=== PATIENT | male | born 1960 | race Caucasian/White ===

== ENCOUNTER → 2023-12-30 10:15 | Outpatient (REF) | payer OTHER, SELFPAY | LOC: HWRAD 10:15 | PROVIDERS: ATTENDING PHYSICIAN Family Medicine | DX: R91.8 Other nonspecific abnormal finding of lung field (principal) | CPT/HCPCS: 71250 ==

== ENCOUNTER → 2024-08-26 11:05 | Outpatient (REF) | payer OTHER, SELFPAY | LOC: RAD 11:05 | PROVIDERS: ATTENDING PHYSICIAN Physician Assistant; FAMILY PHYSICIAN Family Medicine | DX: M25.512 Pain in left shoulder (principal); T14.90XA Injury, unspecified, initial encounter | CPT/HCPCS: 73030 ==

== ENCOUNTER → 2024-09-23 18:36 | Outpatient (REF) | payer OTHER, SELFPAY | LOC: PAVMRI 18:36 | PROVIDERS: ATTENDING PHYSICIAN Physician Assistant; FAMILY PHYSICIAN Family Medicine; PRIMARYCARE PHYSICIAN Family Medicine | DX: M25.512 Pain in left shoulder (principal); M25.612 Stiffness of left shoulder, not elsewhere classified; T14.90XA Injury, unspecified, initial encounter | CPT/HCPCS: 73221 ==

== ENCOUNTER 2024-10-30 06:25 | Day surgery (SDC) | payer OTHER, SELFPAY ==
[2024-10-19 09:24] LABS: Hematocrit 48.9 % (39.0-52.0); Hemoglobin 17.3 g/dL (13.0-18.0); Mean Corp Hgb Conc. 35.4 g/dL (33.0-37.0); Mean Corpuscular Hgb 29.7 pg (27.0-31.0); Mean Platelet Volume 9.9 fL (7.4-10.4); Platelet Count 247 10^3/uL (130-400); Red Blood Cell Count 5.82 10^6/uL (4.70-6.10); Red Cell Dist. Width 12.7 % (11.5-14.5); White Blood Cell Count 12.3 10^3/uL (4.8-10.8)
[2024-10-19 13:01] VITALS: BMI 28.9
[2024-10-30] VITALS (12 sets, daily range): BP systolic 140–169; BP diastolic 91–109; BMI 28.9
[2024-10-30] MEDS: NORMOSOL-R/PLASMALYTE-A 1000 IV (08:14)
[2024-10-30] MEDS: CELEBREX 200 MG PO (08:15)
[2024-10-30] MEDS: TYLENOL 1000 MG PO (08:15)
== END 2024-10-30 13:26 | disposition home or self-care (01) ==
LOC: SDS 06:25
PROVIDERS: ATTENDING PHYSICIAN Specialist; FAMILY PHYSICIAN Family Medicine
DX: S46.012A Strain of muscle(s) and tendon(s) of the rotator cuff of left shoulder, initial encounter (principal); S46.212A Strain of muscle, fascia and tendon of other parts of biceps, left arm, initial encounter; X58.XXXA Exposure to other specified factors, initial encounter; M65.912 Unspecified synovitis and tenosynovitis, left shoulder
CPT/HCPCS: 29827; 36415; 85027; 93005; C1713

== ENCOUNTER 2024-12-14 07:09 | Outpatient (RCR) | payer OTHER, SELFPAY | END 2024-12-14 23:59 | disposition home or self-care (01) | LOC: RPT 07:09 | PROVIDERS: ATTENDING PHYSICIAN Physician Assistant Surgical; FAMILY PHYSICIAN Family Medicine | DX: M25.512 Pain in left shoulder (principal); M62.81 Muscle weakness (generalized); Z73.6 Limitation of activities due to disability; Z98.890 Other specified postprocedural states | CPT/HCPCS: 97110; 97162 ==

== ENCOUNTER 2025-01-13 09:01 | Outpatient (RCR) | payer OTHER, SELFPAY | END 2025-01-13 23:59 | disposition home or self-care (01) | LOC: RPT 09:01 | PROVIDERS: ATTENDING PHYSICIAN Physician Assistant Surgical; FAMILY PHYSICIAN Family Medicine | DX: M25.512 Pain in left shoulder (principal); M62.81 Muscle weakness (generalized); Z73.6 Limitation of activities due to disability; Z98.890 Other specified postprocedural states | CPT/HCPCS: 97110; 97140 ==

== ENCOUNTER 2025-02-12 14:04 | Observation (INO) | payer OTHER, SELFPAY ==
[2025-02-12] VITALS (10 sets, daily range): BP systolic 142–181; BP diastolic 87–111; PULSE 66–67; BMI 30.4
--- NOTE | 2025-02-12 09:55 | ED.GENMED ---
History of Present Illness
<Noe Jackson PA-C - Last Filed: 02/12/25 13:37>
General
Chief Complaint: Dizziness
Source: patient
Time Seen by Provider: 02/12/25 09:35
History of Present Illness
History of Present Illness:
64-year-old male with past medical history of hypertension and hyperlipidemia presenting to the ER for evaluation of dizziness that began this morning upon awakening to use the restroom at 3:30 AM stating he felt as if he was not able to ambulate
straight, was able to get back into bed and fall back asleep but upon awakening again around 730 patient states the symptoms continued. He was able to get to the shower but states that while in the shower he became diaphoretic but never had any
chest pain, shortness of breath, palpitations or any other concerns. Patient did note the dizziness made him feel little bit nauseous but he has not had any vomiting. He does note that he has had vertigo in the past but not feel like vertigo that
he has experienced before. 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 No recent illnesses. Social
history noncontributory.
Past History
<Noe Jackson PA-C - Last Filed: 02/12/25 13:37>
Past History
ED Past Medical History: HTN and Hypercholesterolemia
ED Past Surgical History: Orthopedic
Social History
Tobacco: Non-smoker
Alcohol: Occasional
Drug: None
Personal:
Living: with family
Review of Systems
<Noe Jackson PA-C - Last Filed: 02/12/25 13:37>
Review of Systems
All Other Systems: ROS reviewed and negative except as documented in HPI and ROS
Phy Exam
<Noe Jackson PA-C - Last Filed: 02/12/25 13:37>
Physical Exam
Physical Exam:
GENERAL: Alert , in no apparent distress
HEAD: Normocephalic atraumatic
EYE: conjunctiva clear, pupils 3 mm bilateral, EOMI, no nystagmus
NECK: Supple
ENT: o/p clr, mmm.
CARDIAC: Regular rate and rhythm
LUNGS: Clear breath sounds bilaterally, no acute respiratory distress, no wheezes/rales/rhonchi
NEUROLOGICAL: Alert and oriented, moves all extremities, sensory intact throughout and equal
SKIN: Warm and dry, skin intact.
MUSCULOSKELETAL: well perfused.
PSYCH: Normal and appropriate interaction.
Scores
<Noe Jackson PA-C - Last Filed: 02/12/25 13:37>
NIH Stroke Score
Level of Consciousness: 0 - Alert
LOC Questions: 0-Answers both correctly
LOC Commands: 0-Performs both correctly
Best Horizontal Gaze: 0-Normal
Visual Her: 0=Normal, no visual loss
Facial Palsy: 0=Normal, symmetrical
Motor - Right Arm: 0=No drift 10 seconds
Motor - Left Arm: 0=No drift 10 seconds
Motor - Right Le-No drift 5 seconds
Motor - Left Le-No drift 5 seconds
Limb Ataxia: 0-Absent
Sensation: 0-Normal
Best Language: 0-No aphasia
Dysarthria: 0-Normal
Extinction and Inattention: 0-No abnormality
Total Score:: 0
Heart Failure Risk
Heart Failure Risk Score: Not Applicable
Heart Score for Chest Pain Patients
STEMI patient?: Not applicable
Withdrawal Assessment of Alcohol
Withdrawal Assessment Completed?: Not applicable
<Emory Velez MD - Last Filed: 02/12/25 10:13>
NIH Stroke Score
Total Score:: 0
Course
<ESAU Ralph Last Filed: 02/12/25 13:37>
Orders/Labs/Results
Orders:
Orders
02/12/25 09:38
ECG [Electrocardiogram (*1)] Urgent
Reason for Study: Vertigo / Dizzy
EKG- Treatment ONCE
02/12/25 09:48
Orthostatic VS- Treatment ONCE
0.9% Sodium Chloride 1000 ml [Nss] 1,000 ml IV BOLUS
02/12/25 09:50
Complete Blood Count/With Diff Urgent
Comprehensive Metabolic Panel Urgent
Magnesium Urgent
TSH Urgent
Troponin I Urgent
02/12/25 09:57
CT Head W/o Iv Contrast Urgent
Comment:
Reason For Exam: HTN, dizzy
02/12/25 12:39
Admit/Transfer Patient As Directed
Co-Sign Provider:
Level of Care: Observation services
Assign to:: Telemetry
Physician / Group: Kami
Diagnosis: Hypertensive urgency/TIA, rule out CVA
Reason for Telemetry: CVA/TIA
Date to Stop Telemetry: 02/15/25
Time to Stop Telemetry: 11:00
Reason for Hospitalization: Above
Expected length of stay greater than two midnights?: No
ELOS- Estimated Length of Stay in days: 1
I certify the patient meets the requirements for IP care: No
PRN Pain Medication Management As Directed
May give lesser potent ordered pain med per pt: Yes
preference::
Protocol:: Medication orders for pain may be administered in a
manner that supports deferring to patient preference
when the pt is:
- Requesting an ordered lesser potent pain medication.
Least to most potent pain medications are defined
as: acetaminophen < NSAID < tramadol < opioids
(morphine, oxycodone, hydromorphone).
- Requesting a lesser dose of the same medication IF
ORDERED.
- Requesting a less intrusive route of administration
if both routes are prescribed by the provider (PO <
IV).
02/12/25 12:41
Code Status As Directed
Resuscitation Status: Full Code
02/12/25 12:50
Aspirin 325 mg PO NOW STA
02/15/25 11:00
DC Protocol for Telemetry ONCE
Abnormal Lab Results
02/12/25
09:50
Chloride 109 H mmol/L
(98-107)
BUN 23 H mg/dl
(9-20)
Glucose 138 H mg/dl
(70-99)
Total Bilirubin 1.5 H mg/dl
(0.2-1.3)
02/12/25 09:50
02/12/25 09:50
Vital Signs
Initial and Last Documented VS:
Initial Vital Signs
Temp Pulse Resp BP Pulse Ox
97.5 F 66 16 155/107 99
02/12/25 09:27 02/12/25 09:27 02/12/25 09:27 02/12/25 09:27 02/12/25 09:27
Last Documented Vital Signs
Temp Pulse Resp BP Pulse Ox
97.5 F 70 16 148/91 97
02/12/25 09:27 02/12/25 12:00 02/12/25 09:27 02/12/25 12:00 02/12/25 12:00
<Emory Velez MD - Last Filed: 02/12/25 10:13>
Orders/Labs/Results
Orders:
Orders
02/12/25 09:38
ECG [Electrocardiogram (*1)] Urgent
Reason for Study: Vertigo / Dizzy
EKG- Treatment ONCE
02/12/25 09:48
Orthostatic VS- Treatment ONCE
0.9% Sodium Chloride 1000 ml [Nss] 1,000 ml IV BOLUS
02/12/25 09:50
Complete Blood Count/With Diff Urgent
Comprehensive Metabolic Panel Urgent
Magnesium Urgent
TSH Urgent
Troponin I Urgent
02/12/25 09:57
CT Head W/o Iv Contrast Urgent
Comment:
Reason For Exam: HTN, dizzy
02/12/25 12:39
Admit/Transfer Patient As Directed
Co-Sign Provider:
Level of Care: Observation services
Assign to:: Telemetry
Physician / Group: Kami
Diagnosis: Hypertensive urgency/TIA, rule out CVA
Reason for Telemetry: CVA/TIA
Date to Stop Telemetry: 02/15/25
Time to Stop Telemetry: 11:00
Reason for Hospitalization: Above
Expected length of stay greater than two midnights?: No
ELOS- Estimated Length of Stay in days: 1
I certify the patient meets the requirements for IP care: No
PRN Pain Medication Management As Directed
May give lesser potent ordered pain med per pt: Yes
preference::
Protocol:: Medication orders for pain may be administered in a
manner that supports deferring to patient preference
when the pt is:
- Requesting an ordered lesser potent pain medication.
Least to most potent pain medications are defined
as: acetaminophen < NSAID < tramadol < opioids
(morphine, oxycodone, hydromorphone).
- Requesting a lesser dose of the same medication IF
ORDERED.
- Requesting a less intrusive route of administration
if both routes are prescribed by the provider (PO <
IV).
02/12/25 12:41
Code Status As Directed
Resuscitation Status: Full Code
02/12/25 12:50
Aspirin 325 mg PO NOW STA
02/15/25 11:00
DC Protocol for Telemetry ONCE
Abnormal Lab Results
02/12/25
09:50
Chloride 109 H mmol/L
(98-107)
BUN 23 H mg/dl
(9-20)
Glucose 138 H mg/dl
(70-99)
Total Bilirubin 1.5 H mg/dl
(0.2-1.3)
02/12/25 09:50
02/12/25 09:50
Vital Signs
Initial and Last Documented VS:
Initial Vital Signs
Temp Pulse Resp BP Pulse Ox
97.5 F 66 16 155/107 99
02/12/25 09:27 02/12/25 09:27 02/12/25 09:27 02/12/25 09:27 02/12/25 09:27
Last Documented Vital Signs
Temp Pulse Resp BP Pulse Ox
97.5 F 70 16 148/91 97
02/12/25 09:27 02/12/25 12:00 02/12/25 09:27 02/12/25 12:00 02/12/25 12:00
<Noe Jackson PA-C - Last Filed: 02/12/25 13:37>
MDM/Problems Addressed
Differential Diagnosis Includes:
BPPV, labyrinthitis, vestibular neuritis, posterior/cerebellar CVA, atypical ACS presentation, electrolyte derangement, orthostasis, hypertensive urgency
MDM/Problems Addressed:
64-year-old male presenting to the ER for evaluation of of vertiginous-like symptoms that began earlier this morning, continued prompting patient to come to the ER today. Noted to have significantly elevated diastolic blood pressure. No focal
findings on exam here however given patient's risks for CVA including hypertension, hyperlipidemia, family history I do think patient needs further workup for this. Will obtain labs, CT of the head, discussed with neurology. Disposition pending
with anticipation of admission
Chronic conditions affecting care: HTN
Acute Exacerbation and/or Progression of Chronic Illness: HTN
<Noe Jackson PA-C - Last Filed: 02/12/25 13:37>
*Radiology
Radiology exam reviewed: radiology read reviewed
*Pulse Oximetry
Patient hypoxic: no
*EKG
Heart Rate: 64
Rate: normal
Rhythm: sinus
Ischemia: no ischemia
*Assistant Professor Nurse Education Interpretation
Rate: normal
Rhythm: sinus
*Critical Care Note
Total Time (30-74mins, 75-104mins- exclusive of procedures): Not Applicable
<Noe Jackson PA-C - Last Filed: 02/12/25 13:37>
Patient Management
Discussion with other providers: Hospitalist and Dry Pan Operator
Escalation/DeEscalation of care consider admission/obs:
Notified neurology who will see the patient in consult. Hospitalist team is aware and accepts for continued evaluation and treatment
ED Attending Note
<Noe Jackson PA-C - Last Filed: 02/12/25 13:37>
-
Portions of this chart may have been created with voice recognition software.� Occasional wrong word or��sound alike� substitutions may have occurred due to the inherent limitations of voice recognition software.
<Emory Velez MD - Last Filed: 02/12/25 10:13>
ED Attending Note
Patient seen and examined by attending physician: Yes
I performed the substantive portion of visit, reviewed & personally made and approve the management plan that is documented in note by myself or SARAVANAN.: Yes
ED Attending Note:
54-year-old male acute onset of disequilibrium with a funny feeling in his head starting about 330 this morning. Denies true headache. No vomiting with some nausea. Has a history of vertigo but this feels different. No true spinning or rotating
with this issue. Feels mildly improved at this time.
GENERAL: Alert and oriented in no apparent distress
EYE: Orbits normal. Extraocular muscles intact. No nystagmus
NECK: Supple, no carotid bruit
CARDIAC: Regular rate and rhythm without any obvious murmurs.
LUNGS: Clear breath sounds,normal
NEUROLOGICAL: Alert and oriented , cranial nerves II through XII intact. Speech normal. [id number]-[id number] normal. Hjbv-es-[id number] normal. Light touch intact
SKIN: Warm and dry
PSYCH: Normal and appropriate interaction.
Impression is disequilibrium sudden onset with hypertension history. Somewhat concerning for central etiology given he has a history of vertigo and this feels different. Will do a plain CT first to rule out bleed and asked for neurology's
involvement. NIH 0 at this time
Discharge Plan
Departure
Patient Disposition: Admit
Date of Disposition: 02/12/25
Time of Disposition: 10:49
Presentation/result/management discussed w/ accepting MD/DO: Hospitalist
Discharge Problem:
Hypertensive urgency, Dizziness
Prescriptions:
No Action
ascorbic acid (vitamin C) [Vitamin C] 1,000 mg Tablet
1 g PO DAILY
sumatriptan succinate [Imitrex] 50 mg Tablet
50 mg PO DAILYPRN PRN (Reason: migraines)
rosuvastatin 20 mg Tablet
20 mg PO DAILY
ustekinumab [Stelara] 45 mg/0.5 mL Syringe
45 mg SC Q12W
Referrals:
Alfa Ch MD [Family Provider] -
Interventions
Interventions:
*Risk Screen - Suicide Last Done: 02/12/25 09:27
*General Assessment Last Done: 02/12/25 09:27
*ED COVID-19 Vaccine History Last Done: 02/12/25 09:27
ED- Neurological Assessment Last Done: 02/12/25 09:50
ED- Cardiac Assessment Last Done: 02/12/25 09:36
ED Swallowing Screen Last Done: 02/12/25 11:00
Discharge Date and Time
Print Language: [place]
[2025-02-12] MEDS: NSS 1000 IV (09:59)
[2025-02-12 10:09] LABS: ALT (SGPT) 26 U/L (0-50); AST (SGOT) 25 U/L (17-59); Albumin 4.7 g/dl (3.5-5.0); Alkaline Phosphatase 52 U/L (38-126); Blood Urea Nitrogen 23 mg/dl (9-20); Calcium 9.6 mg/dl (8.4-10.2); Carbon Dioxide 22 mmol/L (22-30); Chloride 109 mmol/L (98-107); Estimated Creatinine Clearance 107 ml/min; Glucose 138 mg/dl (70-99); Magnesium 1.8 mg/dl (1.6-2.3); Potassium 3.9 mmol/L (3.5-5.1); Sodium 141 mmol/L (135-145); Total Bilirubin 1.5 mg/dl (0.2-1.3); Total Protein 7.1 g/dl (6.3-8.2); eGFR > 60.00
[2025-02-12 10:11] LABS: % Basophils 0.5 % (0-2); % Immature Granulocytes 0.2 % (0-0.5); % Lymphocytes 39.8 % (20.5-51.1); % Monocytes 5.6 % (1.7-9.3); % Neutrophils 51.9 % (42.2-75.2); Absolute Eosinophils 0.1 10^3/uL (0-0.7); Absolute Lymphocytes 2.2 10^3/uL (1.2-3.4); Absolute Monocytes 0.3 10^3/uL (0.1-0.6); Absolute Neutrophils 2.9 10^3/uL (1.4-6.5); Hematocrit 47.4 % (39.0-52.0); Hemoglobin 16.9 g/dL (13.0-18.0); Mean Corp Hgb Conc. 35.7 g/dL (33.0-37.0); Mean Corpuscular Hgb 29.3 pg (27.0-31.0); Mean Corpuscular Volume 82.1 fL (80.0-94.0); Mean Platelet Volume 9.7 fL (7.4-10.4); Nucleated Red Blood Cells % 0 % (-); Platelet Count 242 10^3/uL (130-400); Red Blood Cell Count 5.77 10^6/uL (4.70-6.10); Red Cell Dist. Width 13.6 % (11.5-14.5); White Blood Cell Count 5.5 10^3/uL (4.8-10.8)
[2025-02-12 10:20] LABS: Troponin I < 0.012 ng/ml
--- NOTE | 2025-02-12 12:47 | HPS.HSE ---
Family Physician
-
Family Physician: Alfa Ch
Chief Complaint
-
Lightheadedness
History of Present Illness
Patient is a 64 years old male with history of untreated hypertension, dyslipidemia, migraines, plaque psoriasis who presents to the emergency room with persistent lightheadedness. Patient has prior episodes of vertigo, although today he describes
different sensation starting from last night when he woke up to go to the restroom feeling global paresthesia around his head. He later found himself to be lightheaded and ataxic, although he denies any vertigo. He denies any other focal symptoms
including diplopia or loss of vision, denies any speech abnormalities or upper or lower extremity weakness.
Upon presentation to the emergency room patient was found to be hypertensive with persistently elevated diastolic blood pressure over 100.
He was observed with no improved BP and complete resolution of symptoms.
Medical History
Past Medical History
Past Medical History: Reports HTN; Denies CAD, Cancer, CHF or NIDDM
Additional Past Medical History:
Plaque psoriasis.
Migraine
Past Surgical History: Reports None
Social History
Tobacco: Non-smoker
Alcohol: Occasional
Drug: None
Living: With Family
Employment: Retired
Family History
Family History: Not pertinent
Allergies / Home Medications
Allergies reflects when Allergies were last updated in [employer].
Home Medications with original date entered in [employer]
Allergy/Medication List:
Allergies
Allergy/AdvReac Type Severity Reaction Status Date / Time
No Known Allergies Allergy Verified 02/12/25 09:30
Home Medications
ascorbic acid (vitamin C) 1,000 mg tablet (Vitamin C) 1 g PO DAILY 10/23/24
rosuvastatin 20 mg tablet 20 mg PO DAILY 10/23/24
sumatriptan succinate 50 mg tablet (Imitrex) 50 mg PO DAILYPRN PRN migraines 10/23/24
ustekinumab 45 mg/0.5 mL subcutaneous syringe (Stelara) 45 mg SC Q12W 10/23/24
Review of Systems
-
A 12 point ROS was completed and negative except as noted: Yes
Physical Exam
Vital Signs
Vital Signs
Temp Pulse Resp BP Pulse Ox
97.5 F 70 16 148/91 97
02/12/25 09:27 02/12/25 12:00 02/12/25 09:27 02/12/25 12:00 02/12/25 12:00
Physical Exam
General: Well Developed, Well Nourished and No Apparent Distress
HEENT: NormoCephalic, Moist mucous membranes and Atraumatic
Respiratory: Clear
Cardiac: S1/S2 and Regular Rhythm; No Murmur or Rub
GI: Soft, Non Tender, Non Distended and Normal Bowel Sounds; No Organomegaly
Rectal: Deferred by Provider
Musculoskeletal: No Clubbing, No Cyanosis and No Edema
Skin: No Rash
Neuro: Nonfocal/grossly intact
Laboratory Results
-
02/12/25 09:50
02/12/25 09:50
Laboratory Results
Total Bilirubin 1.5 mg/dl (0.2-1.3) H 02/12/25 09:50
AST 25 U/L (17-59) 02/12/25 09:50
ALT 26 U/L (0-50) 02/12/25 09:50
Alkaline Phosphatase 52 U/L (38-126) 02/12/25 09:50
Troponin I < 0.012 ng/ml 02/12/25 09:50
Impression/Plan
-
IMPRESSION:
Presentation with lightheadedness.
Hypertensive urgency/untreated hypertension.
Other conditions:
Hypertension
Dyslipidemia
Migraine headaches.
Plaque psoriasis on Stelara last injection on 02/07/2025
PLAN:
Self-limited episode of lightheadedness.
In the settings of accelerated blood pressure concern for hypertensive urgency
Other differential could be vestibular neuritis, less likely also with reasonable concern for VBA insufficiency, posterior CVA
Exam nonfocal on presentation.
Symptoms resolved.
BP noted trending down without intervention.
CT head with no acute abnormality
Admit for observation.
Neurology consultation.
MRI of the brain
Monitor BP trend closely, avoid aggressive intervention pending imaging. Further workup depends on MRI findings and BP trend.
Lipid profile
Hemoglobin A1c
Aspirin
[2025-02-12] MEDS: ASPIRIN 325 MG PO (13:19)
--- NOTE | 2025-02-12 16:47 | CON.NEURO ---
Consultation
Order
Date of Consultation: 02/12/25
Requesting Provider: Jasvir Mcclure MD
Reason for Consult: dizziness
Neurology Consultation Note.
HPI: this is a 64-year-old right-handed man who presented to [facility] on February 12, 2025 with imbalance.
According to the patient around 3:30 AM, while half-asleep in bed, he experienced a sensation 'like a hand in my brain' lasting for 2 seconds, like a big air bubble.' Upon getting up to urinate, he felt dizzy and unstable. He describes the feeling
as different from his previous experiences with vertigo, noting it wasn't a spinning sensation but rather a feeling of instability. He took a hot shower, felt sweaty, and returned to bed. His daughter, who lives with him, became concerned when their
home blood pressure monitor showed a reading of 173/113, prompting the decision to seek medical attention.
no reports of dysarthria, change in vision,
Mr. Cuello has history of migraine without aura and takes sumatriptan for.
ER VS: 155/103, 66, afebrile
EKG: NSR, QTc Int : 460 ms
PDMP: No recently prescribed medication
Labs: glucose�138, normal WBCs, creatinine, WBCs, TSH.
CT head wo contrast�unremarkable
PMH: migraine without aura, HTN, DLP, mild MESSI, psoriatic arthritis
PSH: bilateral rotator cuff repair, hernia repair
SH: lives with daughter, retired, non-smoker, no history excessive alcohol
FH: Father�EtOH addiction
All:NKDA
ROS: Constitutional: Negative. Negative for chills, fever and unexpected weight change.
HENT: Negative for ear pain, hearing loss, tinnitus and trouble swallowing.
Eyes: Negative. Negative for photophobia, pain and visual disturbance.
Respiratory: Negative for cough, choking and shortness of breath.
Cardiovascular: Negative for chest pain, palpitations and leg swelling.
Gastrointestinal: Negative for abdominal pain and vomiting.
Endocrine: Negative. Negative for cold intolerance.
Genitourinary: Negative for dysuria, flank pain and urgency.
Musculoskeletal: Negative for back pain, gait problem, neck pain and neck stiffness.
Skin: Negative for rash.
Allergic/Immunologic: Negative. Negative for immunocompromised state.
Neurological: positive for transient dizziness, intermittent headache
Psychiatric/Behavioral: Negative for behavioral problems, confusion and hallucinations.
General: Well developed. In no acute distress.
Cardio: Regular rate and rhythm without murmur. Extremities are without cyanosis or edema.
Neuro:
Mental Status: Alert, oriented to person, place, and date. Normal attention and recall. Good fund of knowledge. Follows complex requests across the midline. Comprehension, naming, and repetition intact. Immediate and delayed recall 3/3.
Cranial Nerves: Pupils are equally round and reactive to light. EOMs full. Visual monsivais full to confrontation. No ptosis. No nystagmus. V1-V3 intact to light touch and pinprick bilaterally, symmetric. Face symmetric. Normal hearing AU. The
palate elevated well. SCMs and traps 5/5. Tongue midline. No dysarthria.
Motor: Normal bulk and tone. No pronator or arm drift. Strength 5/5 throughout. No clonus.
Reflexes: 2+ throughout the upper extremities and knees. Plantar responses flexor bilaterally.
Sensory: Normal vibration and JPS.
Coordination: No dysmetria or tremor.
Gait: deferred
Assessment and Plan:
I. Likely hypertensive emergency
II. Migraine without aura
III. Chronic immunosuppression
-Continue Telemetry monitoring
- Fall precaution
-Cautious lowering of BP by approximately 15 % during the first 24 hours is SBP >220 mmHg or diastolic blood pressure >120 mmHg
-Brain MRI without dash
-Hold triptans until brain MRI is completed
-PT.
-DVT prophylaxis.
I personally reviewed all radiology and labs along with past medical records pertinent to current medical problems. Total time spent in patient care is 60 minutes.
Thank you for allowing us to participate in the care of this patient. We will continue to follow. Please do not hesitate to contact us with any questions or concerns.
Subjective/Objective
Subjective Data
Date of Service: February 12, 2025
Objective Data
Vital Signs
Temp Pulse Resp BP Pulse Ox
36.6 C 71 19 152/96 97
02/12/25 16:10 02/12/25 16:10 02/12/25 16:10 02/12/25 16:10 02/12/25 16:10
Lab Results
02/12/25 09:50
02/12/25 09:50
Sodium 141 mmol/L (135-145) 02/12/25 09:50
Potassium 3.9 mmol/L (3.5-5.1) 02/12/25 09:50
BUN 23 mg/dl (9-20) H 02/12/25 09:50
Glucose 138 mg/dl (70-99) H 02/12/25 09:50
Calcium 9.6 mg/dl (8.4-10.2) 02/12/25 09:50
Patient Allergies
No Known Allergies Allergy (Verified 02/12/25 09:30)
Medications
-
Active Medications
Generic Name Dose Route Start Last Admin
Trade Name Freq PRN Reason Stop Dose Admin
Acetaminophen 650 mg 02/12/25 16:04
Acetaminophen 650 Mg Rectal Suppository RECTAL 03/12/25 16:03
Q4HPRN PRN
VU, mild pain, or temp >100.4F
Acetaminophen 650 mg 02/12/25 16:04
Acetaminophen 325 Mg Tablet PO 03/12/25 16:03
Q4HPRN PRN
VU, mild pain, or temp >100.4F
Ascorbic Acid 500 mg 02/13/25 08:00
Ascorbic Acid 500 Mg Tablet PO 03/13/25 07:59
DAILY ANUJ
Enoxaparin Sodium 40 mg 02/12/25 18:00
Enoxaparin Sodium 40 Mg/0.4 Ml Syringe SC 03/12/25 17:59
QPM ANUJ
Rosuvastatin Calcium 20 mg 02/13/25 08:00
Rosuvastatin (Crestor) 20 Mg Tablet PO 03/13/25 07:59
DAILY ANUJ
Home Medications
�Medication �Instructions �Recorded
ascorbic acid (vitamin C) 1,000 mg 1 g PO DAILY 10/23/24
tablet (Vitamin C)
rosuvastatin 20 mg tablet 20 mg PO DAILY 10/23/24
sumatriptan succinate 50 mg tablet 50 mg PO DAILYPRN PRN migraines 10/23/24
(Imitrex)
ustekinumab 45 mg/0.5 mL 45 mg SC Q12W 10/23/24
subcutaneous syringe (Stelara)
Vital Signs and Labs
-
Vital Signs and Labs:
Vital Signs
Temp Pulse Resp BP Pulse Ox
36.6 C 71 19 152/96 97
02/12/25 16:10 02/12/25 16:10 02/12/25 16:10 02/12/25 16:10 02/12/25 16:10
Lab Results
02/12/25 09:50
02/12/25 09:50
Sodium 141 mmol/L (135-145) 02/12/25 09:50
Potassium 3.9 mmol/L (3.5-5.1) 02/12/25 09:50
BUN 23 mg/dl (9-20) H 02/12/25 09:50
Glucose 138 mg/dl (70-99) H 02/12/25 09:50
Calcium 9.6 mg/dl (8.4-10.2) 02/12/25 09:50
Medications
-
Medications:
Generic Name Dose Route Start Last Admin
Trade Name Freq PRN Reason Stop Dose Admin
Acetaminophen 650 mg 02/12/25 16:04
Acetaminophen 650 Mg Rectal Suppository RECTAL 03/12/25 16:03
Q4HPRN PRN
VU, mild pain, or temp >100.4F
Acetaminophen 650 mg 02/12/25 16:04
Acetaminophen 325 Mg Tablet PO 03/12/25 16:03
Q4HPRN PRN
VU, mild pain, or temp >100.4F
Ascorbic Acid 500 mg 02/13/25 08:00
Ascorbic Acid 500 Mg Tablet PO 03/13/25 07:59
DAILY ANUJ
Enoxaparin Sodium 40 mg 02/12/25 18:00
Enoxaparin Sodium 40 Mg/0.4 Ml Syringe SC 03/12/25 17:59
QPM ANUJ
Rosuvastatin Calcium 20 mg 02/13/25 08:00
Rosuvastatin (Crestor) 20 Mg Tablet PO 03/13/25 07:59
DAILY ANUJ
Home Medications
-
Home Medications
ascorbic acid (vitamin C) 1,000 mg tablet (Vitamin C) 1 g PO DAILY 10/23/24
rosuvastatin 20 mg tablet 20 mg PO DAILY 10/23/24
sumatriptan succinate 50 mg tablet (Imitrex) 50 mg PO DAILYPRN PRN migraines 10/23/24
ustekinumab 45 mg/0.5 mL subcutaneous syringe (Stelara) 45 mg SC Q12W 10/23/24
[2025-02-12] MEDS: LOVENOX 40 MG SC (18:57)
[2025-02-12] MEDS: TYLENOL 650 MG PO (19:07)
[2025-02-13 00:41] VITALS: BP 163/95
[2025-02-13 03:30] VITALS: BP 138/86
[2025-02-13] MEDS: TYLENOL 650 MG PO ×2 (03:53→08:15)
[2025-02-13 06:00] VITALS: BMI 29.4
[2025-02-13 07:00] VITALS: BP 131/81
[2025-02-13] MEDS: VITAMIN C 500 MG PO (08:10)
[2025-02-13] MEDS: CRESTOR 20 MG PO (08:10)
[2025-02-13 08:51] LABS: HDL Cholesterol 37 mg/dl; LDL Cholesterol, Calculated 87 mg/dl; Total Cholesterol 167 mg/dl (50-199); Triglyceride 219 mg/dl (10-149); Very Low Density Lipoprotein 43 mg/dl (0-30)
--- NOTE | 2025-02-13 10:30 | W.PN.HOSP.TC ---
Today's Communication/Plan
-
add 5mg Lisinopril
await MRI read; if negative, can dc home
Assessment / Plan
Assessment / Plan
IMPRESSION:
Presentation with lightheadedness.
Hypertensive urgency/untreated hypertension.
Other conditions:
Essential Hypertension
Dyslipidemia
Migraine headaches.
Plaque psoriasis on Stelara last injection on 02/07/2025
PLAN:
Self-limited episode of lightheadedness.
In the settings of accelerated blood pressure concern for hypertensive urgency
Other differential could be vestibular neuritis, less likely also with reasonable concern for VBA insufficiency, posterior CVA
Exam nonfocal on presentation.
Symptoms resolved.
BP noted trending down without intervention. But patient notes periods of elevated BP at home and in office visits. Was previously on BP meds but stopped 5 years ago - cannot recall the name.
CT head with no acute abnormality
MRI pending
Neuro consult appreciated
LDL 87
continue aspirin for now.
Anticipated Discharge: Within 24 hours
Subjective/Interval History
-
Date of Service: February 13, 2025
reports headache improving
no dizziness, no unsteadiness on his feet
BP 131/81
Objective Data
-
Vital Signs:
Vital Signs
Temp Pulse Resp BP Pulse Ox
98.2 F 68 16 131/81 95
02/13/25 07:00 02/13/25 07:00 02/13/25 07:00 02/13/25 07:00 02/13/25 07:00
Physical Exam
-
General: No Apparent Distress
HEENT: Normocephalic and Atraumatic
Respiratory: Negative Wheezes
Cardiac: Regular Rhythm and S1/S2
GI: Soft and Nontender
Genito-urinary: No Costovertebral Tender
Neuro: AO x 3
Hematologic / Lymphatic: No Lymphadenopathy
Psych: Calm
Data Reviewed
-
Total Time Spent with Patient (in minutes): 41
Labs: Labs Reviewed by me
[2025-02-13 11:00] VITALS: BP 143/101
--- NOTE | 2025-02-13 11:18 | W.PN.NEURO.1 ---
Today's Communication / Plan
-
.
Subjective/Objective
Subjective Data
Date of Service: February 13, 2025
Neurology follow-up note.
Mr. Cuello reports no complaints. He is eager to go home. No recurrent episodes of unusual sensation. Blood pressure has improved.
PMH: migraine without aura, HTN, DLP, mild MESSI, psoriatic arthritis
PSH: bilateral rotator cuff repair, hernia repair
SH: lives with daughter, retired, non-smoker, no history excessive alcohol
FH: Father�EtOH addiction
All:NKDA
ROS: Constitutional: Negative. Negative for chills, fever and unexpected weight change.
HENT: Negative for ear pain, hearing loss, tinnitus and trouble swallowing.
Eyes: Negative. Negative for photophobia, pain and visual disturbance.
Respiratory: Negative for cough, choking and shortness of breath.
Cardiovascular: Negative for chest pain, palpitations and leg swelling.
Gastrointestinal: Negative for abdominal pain and vomiting.
Endocrine: Negative. Negative for cold intolerance.
Genitourinary: Negative for dysuria, flank pain and urgency.
Musculoskeletal: Negative for back pain, gait problem, neck pain and neck stiffness.
Skin: Negative for rash.
Allergic/Immunologic: Negative. Negative for immunocompromised state.
Neurological: positive for transient dizziness, intermittent headache
Psychiatric/Behavioral: Negative for behavioral problems, confusion and hallucinations.
General: Well developed. In no acute distress.
Cardio: Regular rate and rhythm without murmur. Extremities are without cyanosis or edema.
Neuro:
Mental Status: Alert, oriented to person, place, and date. Normal attention and recall. Good fund of knowledge. Follows complex requests across the midline. Comprehension, naming, and repetition intact.
Cranial Nerves: Pupils are equally round and reactive to light. EOMs full. Visual monsivais full to confrontation. No ptosis. No nystagmus. V1-V3 intact to light touch and pinprick bilaterally, symmetric. Face symmetric. Normal hearing AU. The
palate elevated well. SCMs and traps 5/5. Tongue midline. No dysarthria.
Motor: Normal bulk and tone. No pronator or arm drift. Strength 5/5 throughout. No clonus.
Coordination: No dysmetria or tremor.
Gait: deferred
Assessment and Plan:
I. Likely hypertensive emergency
II. Migraine without aura
III. Chronic immunosuppression
-Continue Telemetry monitoring
-Brain MRI without dash(can be done as OP)
-Hold triptans until brain MRI is completed
-PT.
-DVT prophylaxis.
- Outpatient neurology follow-up
I personally reviewed all radiology and labs along with past medical records pertinent to current medical problems. Total time spent in patient care is 35 minutes.
Thank you for allowing us to participate in the care of this patient. Please do not hesitate to contact us with any questions or concerns.
Objective Data
Vital Signs
Temp Pulse Resp BP Pulse Ox
36.8 C 68 16 131/81 95
02/13/25 07:00 02/13/25 07:00 02/13/25 07:00 02/13/25 07:00 02/13/25 07:00
Lab Results
02/12/25 09:50
02/12/25 09:50
Sodium 141 mmol/L (135-145) 02/12/25 09:50
Potassium 3.9 mmol/L (3.5-5.1) 02/12/25 09:50
BUN 23 mg/dl (9-20) H 02/12/25 09:50
Glucose 138 mg/dl (70-99) H 02/12/25 09:50
Calcium 9.6 mg/dl (8.4-10.2) 02/12/25 09:50
LDL Cholesterol, Calc 87 mg/dl 02/13/25 06:41
Patient Allergies
No Known Allergies Allergy (Verified 02/12/25 09:30)
Vital Signs and Labs
-
Vital Signs and Labs:
Vital Signs
Temp Pulse Resp BP Pulse Ox
36.8 C 68 16 131/81 95
02/13/25 07:00 02/13/25 07:00 02/13/25 07:00 02/13/25 07:00 02/13/25 07:00
Lab Results
02/12/25 09:50
02/12/25 09:50
Sodium 141 mmol/L (135-145) 02/12/25 09:50
Potassium 3.9 mmol/L (3.5-5.1) 02/12/25 09:50
BUN 23 mg/dl (9-20) H 02/12/25 09:50
Glucose 138 mg/dl (70-99) H 02/12/25 09:50
Calcium 9.6 mg/dl (8.4-10.2) 02/12/25 09:50
LDL Cholesterol, Calc 87 mg/dl 02/13/25 06:41
Medications
-
Medications:
Generic Name Dose Route Start Last Admin
Trade Name Freq PRN Reason Stop Dose Admin
Acetaminophen 650 mg 02/12/25 16:04
Acetaminophen 650 Mg Rectal Suppository RECTAL 03/12/25 16:03
Q4HPRN PRN
VU, mild pain, or temp >100.4F
Acetaminophen 650 mg 02/12/25 16:04 02/13/25 08:15
Acetaminophen 325 Mg Tablet PO 03/12/25 16:03 650 mg
Q4HPRN PRN Administration
VU, mild pain, or temp >100.4F
Ascorbic Acid 500 mg 02/13/25 08:00 02/13/25 08:10
Ascorbic Acid 500 Mg Tablet PO 03/13/25 07:59 500 mg
DAILY ANUJ Administration
Enoxaparin Sodium 40 mg 02/12/25 18:00 02/12/25 18:57
Enoxaparin Sodium 40 Mg/0.4 Ml Syringe SC 03/12/25 17:59 40 mg
QPM ANUJ Administration
Lisinopril 5 mg 02/13/25 11:00
Lisinopril 5 Mg Tablet PO 03/13/25 10:59
DAILY ANUJ
Rosuvastatin Calcium 20 mg 02/13/25 08:00 02/13/25 08:10
Rosuvastatin (Crestor) 20 Mg Tablet PO 03/13/25 07:59 20 mg
DAILY ANUJ Administration
Home Medications
-
Home Medications
ascorbic acid (vitamin C) 1,000 mg tablet (Vitamin C) 1 g PO DAILY 10/23/24
rosuvastatin 20 mg tablet 20 mg PO DAILY 10/23/24
sumatriptan succinate 50 mg tablet (Imitrex) 50 mg PO DAILYPRN PRN migraines 10/23/24
ustekinumab 45 mg/0.5 mL subcutaneous syringe (Stelara) 45 mg SC Q12W 10/23/24
--- NOTE | 2025-02-13 11:58 | CM ---
Addendum entered by Samantha Presley RN 02/13/25 15:29:
PT/OT; no skilled need.
The patient stated he felt ready to go home today and family would provide transport home.
Plan home today.
Addendum entered by Samantha Presley RN 02/13/25 12:18:
Observation Letter completed.
Original Note:
Patient with Dx Likely hypertensive emergency, Migraine. Room air. Brain MRI today. Per nursing; ambulatory in room. PT/OT pending.
Met with patient who resides with his daughter Bernie and grand-daughter in a 1 story house with 5 MUKESH.
The patient was independent in ADLs and ambulation.
He was active waling 6 miles every other day.
The patient has no DME, no prior VN or SNF.
He states he had a left rotator cuff repair and is currently doing Outpatient PT therapy.
PCP - [facility]
Pharmacy - [facility]
Anticipate likely no d/c needs.
Plan probable home with resumption outpatient PT.
[2025-02-13] MEDS: ZESTRIL 5 MG PO (12:17)
[2025-02-13 12:45] VITALS: BP 168/106; PULSE 72; O2SAT 99
--- NOTE | 2025-02-13 12:47 | W.DS.TRANS ---
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
-
Discharge Instructions:
Discharge Diagnosis/Procedures headache dizziness
Diet Low Sodium,Low Cholesterol
Activity As tolerated
Instructions:
Stand-Alone Forms:
Changes to Home Medications: No
Discharge Medications:
DC Medications w/original date entered in [facility]
ascorbic acid (vitamin C) 1,000 mg tablet (Vitamin C) 1 g PO DAILY 10/23/24
rosuvastatin 20 mg tablet 20 mg PO DAILY 10/23/24
sumatriptan succinate 50 mg tablet (Imitrex) 50 mg PO DAILYPRN PRN migraines 10/23/24
ustekinumab 45 mg/0.5 mL subcutaneous syringe (Stelara) 45 mg SC Q12W 10/23/24
lisinopril 5 mg tablet 5 mg PO DAILY #30 tabs 02/13/25
Home Medication Changes
Pending Results: No
Total time spent discharging patient (in min): 41
[2025-02-13 12:50] VITALS: BP 168/106; PULSE 72
--- NOTE | 2025-02-13 13:24 | PTOTSP ---
Patient appears at his functional baseline. He is I with all mobility and performs it safe and steady. patient also concurs that he does not feel that he is in need of services and is eager to return home. At this time, there is no skilled PT
needs while in house. Encouraged patient to continue to mobilize while in house to maintain functional abilities. No needs upon DC. Will sign off.
== END 2025-02-13 15:49 | disposition home or self-care (01) ==
LOC: 4 WEST ACU 14:04
PROVIDERS: Physician Assistant Medical; ADMITTING PHYSICIAN Internal Medicine; ATTENDING PHYSICIAN Internal Medicine; CONSULT PHYSICIAN Psychiatry & Neurology Neurology; EMERGENCY PHYSICIAN Emergency Medicine; FAMILY PHYSICIAN Family Medicine
DX: I16.0 Hypertensive urgency (principal); G45.9 Transient cerebral ischemic attack, unspecified; D84.9 Immunodeficiency, unspecified; G43.909 Migraine, unspecified, not intractable, without status migrainosus; G43.009 Migraine without aura, not intractable, without status migrainosus; L40.0 Psoriasis vulgaris; I16.1 Hypertensive emergency; I10 Essential (primary) hypertension
CPT/HCPCS: 70450; 70551; 80053; 80061; 83735; 84443; 84484; 85025; 93005; 96360; 97161; 97165; 99285; G0378

== ENCOUNTER 2025-02-17 09:52 | Outpatient (RCR) | payer OTHER, SELFPAY | END 2025-02-17 23:59 | disposition home or self-care (01) | LOC: RPT 09:52 | PROVIDERS: ATTENDING PHYSICIAN Physician Assistant Surgical; FAMILY PHYSICIAN Family Medicine | DX: M25.512 Pain in left shoulder (principal); M62.81 Muscle weakness (generalized); Z73.6 Limitation of activities due to disability; Z98.890 Other specified postprocedural states | CPT/HCPCS: 97110; 97112; 97140 ==

== ENCOUNTER 2025-02-24 11:03 | Outpatient (RCR) | payer OTHER, SELFPAY | END 2025-02-24 15:15 | disposition home or self-care (01) | LOC: RPT 11:03 | PROVIDERS: ATTENDING PHYSICIAN Physician Assistant Surgical; FAMILY PHYSICIAN Family Medicine | DX: M25.512 Pain in left shoulder (principal); Z47.89 Encounter for other orthopedic aftercare (principal); M62.81 Muscle weakness (generalized); Z73.6 Limitation of activities due to disability; Z98.890 Other specified postprocedural states; S46.012D Strain of muscle(s) and tendon(s) of the rotator cuff of left shoulder, subsequent encounter | CPT/HCPCS: 97110 ==